=== PATIENT | female | born 2005 | race Two or more races ===

== ENCOUNTER 2023-11-03 01:25 | Emergency (ER) | payer MEDICAID ==
[~2023-11-03] VITALS: Ht 160 cm; Wt 72.6 kg
[2023-11-03 01:50] VITALS: BP 134/89; TEMP 97.6; O2SAT 99
[2023-11-03] MEDS ORDERED: KETO10TA2 PO (01:53)
[2023-11-03] MEDS ORDERED: MORP15TA PO (01:53)
[2023-11-03] MEDS ORDERED: HYDROCODONE/APAP 5/325MG TABLET ONE (02:00)
[2023-11-03] MEDS ORDERED: HYDROCODONE/APAP 5/325MG TABLET PO ONE (02:00)
[2023-11-03] MEDS ORDERED: TDAP [DIPH/PERTUSSIS/TET] 0.5 ML VIAL IM ONE ×2 (02:00)
== END 2023-11-03 02:07 | disposition home or self-care (01) ==
LOC: ER 01:42
DX: T23.231A Burn of second degree of multiple right fingers (nail), not including thumb, initial encounter (principal); T31.0 Burns involving less than 10% of body surface; X19.XXXA Contact with other heat and hot substances, initial encounter; Y93.89 Activity, other specified; Y92.89 Other specified places as the place of occurrence of the external cause; Y99.8 Other external cause status
CPT/HCPCS: 90715

== ENCOUNTER 2023-11-22 12:49 | Emergency (ER) | payer MEDICAID ==
[~2023-11-22] VITALS: Ht 165.1 cm; Wt 73.0 kg
[~2023-11-22 12:49] MED LIST: KETO10TA2 PO; MORP15TA PO
[2023-11-22] MEDS ORDERED: BENZ-13 PO (15:07)
[2023-11-22] MEDS ORDERED: KETO10TA2 PO (15:07)
[2023-11-22] MEDS ORDERED: GUAI1TBM19 PO (15:07)
[2023-11-22 15:13] VITALS: BP 126/77; TEMP 98; O2SAT 100
== END 2023-11-22 15:13 | disposition home or self-care (01) ==
LOC: ER 13:00
DX: J06.9 Acute upper respiratory infection, unspecified (principal); R05.9 Cough, unspecified; Z53.21 Procedure and treatment not carried out due to patient leaving prior to being seen by health care provider; Z20.822 Contact with and (suspected) exposure to COVID-19

== ENCOUNTER 2024-02-20 02:24 | Emergency (ER) | payer MEDICAID ==
[~2024-02-20] VITALS: Ht 167.6 cm; Wt 71.7 kg
[~2024-02-20 02:24] MED LIST changes: +BENZ-13 PO; +GUAI1TBM19 PO
[2024-02-20] MEDS ORDERED: ONDANSETRON HCL/PF 4 MG/2 ML VIAL ONE (03:16)
[2024-02-20] MEDS: ONDANSETRON HCL/PF 4 MG/2 ML VIAL IVP ONE (03:20)
[2024-02-20 03:23] LABS: BASOPHILS % (AUTO) 0.4 % (0.0-2.0); EOSINOPHILS # (AUTO) 0.1 K/uL (0.0-0.7); EOSINOPHILS % (AUTO) 0.9 % (0.0-6.0); HEMATOCRIT 39 % (33-45); HEMOGLOBIN 13.3 g/dL (11.5-14.8); LYMPHOCYTES # (AUTO) 2.8 K/uL (0.8-4.8); LYMPHOCYTES % (AUTO) 39.5 % (20.0-44.0); MEAN CORPUSCULAR HEMOGLOBIN 31 PG (26.0-33.0); MEAN CORPUSCULAR HGB CONC 34 g/dl (31.0-36.0); MEAN CORPUSCULAR VOLUME 91 fL (82-100); MONOCYTES # (AUTO) 0.2 K/uL (0.1-1.30); MONOCYTES % (AUTO) 3.3 % (2.0-12.0); NEUTROPHILS # (AUTO) 3.9 K/uL (1.8-8.9); NEUTROPHILS % (AUTO) 55.9 % (43.0-81.0); PLATELET COUNT (AUTO) 334 K/uL (150-450); RED BLOOD CELL COUNT(AUTO) 4.35 MIL/uL (4.0-5.2); RED CELL DISTRIBUTION WIDTH 13.5 % (11.5-15.0)
[2024-02-20 03:25] LABS: APPEARANCE,URINE CLEAR (CLEAR); BILIRUBIN,URINE NEGATIVE (NEGATIVE); BLOOD, URINE 1+ Ery/uL (NEGATIVE); COLOR,URINE YELLOW (YELLOW); KETONES,URINE NEGATIVE (NEGATIVE); LEUKOCYTE ESTERASE ,URINE NEGATIVE (NEGATIVE); NITRITE, URINE NEGATIVE (NEGATIVE); PROTEIN,URINE NEGATIVE (NEGATIVE); UGLUCOSE NEGATIVE (NEGATIVE); UROBILINOGEN,URINE 0.2 EU/dL (0.2)
[2024-02-20 03:26] LABS: ADD URINE CULTURE NO; BACTERIA,URINE Rare /HPF (None Seen); SQUAMOUS EPITHELIAL CELL,UR Rare /HPF (None Seen); WBC,URINE 0-2 /HPF (0-3)
[2024-02-20 03:27] LABS: PREGNANCY TEST URINE QUAL NEGATIVE (NEGATIVE)
[2024-02-20 03:49] LABS: AMPHETAMINE, URINE NEGATIVE (NEGATIVE); BARBITURATE, URINE NEGATIVE (NEGATIVE); BENZODIAZEPINE, URINE NEGATIVE (NEGATIVE); COCCAINE, URINE NEGATIVE (NEGATIVE); OPIATE, URINE NEGATIVE (NEGATIVE); PHENCYCLIDINE SCREEN,URINE NEGATIVE (NEGATIVE)
[2024-02-20 03:50] LABS: ALANINE AMINOTRANSFERASE 50 U/L (12-78); ALCOHOL, BLOOD 244 mg/dL (0-10); ALKALINE PHOSPHATASE 87 U/L (46-116); ASPARTATE AMINOTRANSFERASE 25 U/L (15-37); BILIRUBIN,DIRECT 0.1 mg/dL (0.0-0.2); BILIRUBIN,TOTAL 0.2 mg/dL (0.2-1.0); CALCIUM, SERUM 8.3 mg/dL (8.5-10.1); CHLORIDE 106 mmol/L (98-107); CREATININE 0.7 mg/dL (0.6-1.3); GLUCOSE 155 mg/dL (74-106); POTASSIUM 3.4 mmol/L (3.5-5.1); SODIUM SERUM 143 mmol/L (136-145); TOTAL PROTEIN, SERUM 7.9 g/dL (6.4-8.2); UREA NITROGEN, BLOOD 6 mg/dL (7-18)
[2024-02-20 03:51] LABS: ACETAMINOPHEN <10 ug/ml (10-30); SALICYLATE 2.5 mg/dL (2.8-20.0)
[2024-02-20 03:53] LABS: CANNABINOID, URINE POSITIVE (NEGATIVE)
[2024-02-20 03:56] LABS: CARBON DIOXIDE 27 mmol/L (21-32)
[2024-02-20 05:44] VITALS: TEMP 98.6
[2024-02-20 07:07] VITALS: BP 121/68; O2SAT 97
== END 2024-02-20 07:07 | disposition home or self-care (01) ==
LOC: ER 02:27
DX: F10.121 Alcohol abuse with intoxication delirium (principal); R10.2 Pelvic and perineal pain; R51.9 Headache, unspecified; M54.2 Cervicalgia; Z79.899 Other long term (current) drug therapy; Y90.8 Blood alcohol level of 240 mg/100 ml or more
CPT/HCPCS: 99285; 96374; 93005; 71045; 72125; 70450; 85025; 80048; 80076; 84703; 81001; 36415; 80143; 80320; 80307; J2405; G0480

== ENCOUNTER 2024-04-27 13:38 | Emergency (ER) | payer MEDICAID ==
[~2024-04-27] VITALS: Ht 162.6 cm; Wt 70.3 kg
[2024-04-27] MEDS ORDERED: KETOROLAC TROMETHAMINE 15 MG/ML VIAL ONE (14:34)
[2024-04-27] MEDS: IV NS 0.9% 1,000 ML BAG IV ONE (14:45)
[2024-04-27 14:48] LABS: BASOPHILS % (AUTO) 0.3 % (0.0-2.0); EOSINOPHILS % (AUTO) 0.2 % (0.0-6.0); HEMATOCRIT 41 % (33-45); HEMOGLOBIN 13.8 g/dL (11.5-14.8); LYMPHOCYTES # (AUTO) 0.7 K/uL (0.8-4.8); LYMPHOCYTES % (AUTO) 6.3 % (20.0-44.0); MEAN CORPUSCULAR HEMOGLOBIN 30 PG (26.0-33.0); MEAN CORPUSCULAR HGB CONC 34 g/dl (31.0-36.0); MEAN CORPUSCULAR VOLUME 89 fL (82-100); MONOCYTES # (AUTO) 0.7 K/uL (0.1-1.30); MONOCYTES % (AUTO) 6.3 % (2.0-12.0); NEUTROPHILS # (AUTO) 9.3 K/uL (1.8-8.9); NEUTROPHILS % (AUTO) 86.9 % (43.0-81.0); PLATELET COUNT (AUTO) 320 K/uL (150-450); RED BLOOD CELL COUNT(AUTO) 4.62 MIL/uL (4.0-5.2); RED CELL DISTRIBUTION WIDTH 13.4 % (11.5-15.0); WHITE BLOOD COUNT (AUTO) 10.7 K/uL (4.3-11.0)
[2024-04-27] MEDS: KETOROLAC TROMETHAMINE 15 MG/ML VIAL IV ONE (14:55)
[2024-04-27 15:04] LABS: CALCIUM, SERUM 9.1 mg/dL (8.5-10.1); CREATININE 0.7 mg/dL (0.6-1.3); POTASSIUM 3.7 mmol/L (3.5-5.1)
[2024-04-27 15:06] LABS: APPEARANCE,URINE Clear (CLEAR); BILIRUBIN,URINE Negative (NEGATIVE); BLOOD, URINE Moderate Ery/uL (NEGATIVE); COLOR,URINE YELLOW (YELLOW); KETONES,URINE Negative (NEGATIVE); LEUKOCYTE ESTERASE ,URINE Trace (NEGATIVE); NITRITE, URINE Negative (NEGATIVE); PH,URINE 8.5 (5.0-8.0); PROTEIN,URINE Negative (NEGATIVE); UGLUCOSE Negative (NEGATIVE); UROBILINOGEN,URINE 0.2 EU/dL (0.2)
[2024-04-27 15:08] LABS: PREGNANCY TEST URINE QUAL NEGATIVE (NEGATIVE)
[2024-04-27 15:22] LABS: ADD URINE CULTURE YES; BACTERIA,URINE 1+ /HPF (None Seen)
[2024-04-27] MEDS ORDERED: CEPH-570 PO (16:00)
[2024-04-27 17:00] VITALS: BP 125/78; O2SAT 97
== END 2024-04-27 17:00 | disposition home or self-care (01) ==
LOC: ER 13:42
DX: B34.9 Viral infection, unspecified (principal); N39.0 Urinary tract infection, site not specified; M54.9 Dorsalgia, unspecified; Z20.822 Contact with and (suspected) exposure to COVID-19
CPT/HCPCS: 99283; 96374; 96361; 87426; 85025; 80048; 87086; 84703; 81001; 36415; J7030; J1885

== ENCOUNTER 2024-07-29 15:09 | Emergency (ER) | payer MEDICAID ==
[~2024-07-29] VITALS: Ht 162.6 cm; Wt 72.6 kg
[~2024-07-29 15:09] MED LIST changes: +CEPH-570 PO
[2024-07-29 16:24] LABS: APPEARANCE,URINE CLEAR (CLEAR); BILIRUBIN,URINE NEGATIVE (NEGATIVE); BLOOD, URINE 2+ Ery/uL (NEGATIVE); COLOR,URINE YELLOW (YELLOW); KETONES,URINE NEGATIVE (NEGATIVE); LEUKOCYTE ESTERASE ,URINE NEGATIVE (NEGATIVE); NITRITE, URINE NEGATIVE (NEGATIVE); PH,URINE 6.5 (5.0-8.0); PROTEIN,URINE NEGATIVE (NEGATIVE); UGLUCOSE NEGATIVE (NEGATIVE); UROBILINOGEN,URINE 0.2 EU/dL (0.2)
[2024-07-29 16:27] LABS: PREGNANCY TEST URINE QUAL NEGATIVE (NEGATIVE)
[2024-07-29 16:28] LABS: RBC,URINE 21-50 /HPF (0-2); WBC,URINE 0-2 /HPF (0-3)
[2024-07-29 16:30] LABS: ADD URINE CULTURE NO; BACTERIA,URINE None seen /HPF (None Seen)
[2024-07-29] MEDS ORDERED: CLOT21CR6 VG (16:35)
[2024-07-29 16:53] VITALS: BP 125/85; TEMP 98.3; O2SAT 100
== END 2024-07-29 16:50 | disposition home or self-care (01) ==
LOC: ER 15:11
DX: B37.31 Acute candidiasis of vulva and vagina (principal); Z32.02 Encounter for pregnancy test, result negative; R10.2 Pelvic and perineal pain; Z79.899 Other long term (current) drug therapy
CPT/HCPCS: 81001; 84703-TC